=== PATIENT | female | born 1970 | race Two or more races ===

== ENCOUNTER 2018-09-06 13:43 | Inpatient (IN) | payer OTHER ==
[2018-09-06 14:20] VITALS: BMI 23.0
--- NOTE | 2018-09-06 15:34 | HP ---
CIWA Score Nausea/Vomitin-No Nausea/No Vomiting Muscle Tremors: 4-Moderate,w/Arms Extend Anxiety: 4-Mod. Anxious/Guarded Agitation: 4-Moderately Restless Paroxysmal Sweats: 3 Orientation: 0-Oriented Tacttile Disturbances: 0-None Auditory Disturbances: 0-None Visual Disturbances: 0-None Headache: 1-Very Mild CIWA-Ar Total Score: 16 - Admission Criteria OASAS Guidelines: Admission for Medically Managed Detox: Requires at least one of the followin. CIWA greater than 12 2. Seizures within the past 24 hours 3. Delirium tremens within the past 24 hours 4. Hallucinations within the past 24 hours 5. Acute intervention needed for co occurring medical disorder 6. Acute intervention needed for co occurring psychiatric disorder 7. Severe withdrawal that cannot be handled at a lower level of care (continued vomiting, continued diarrhea, abnormal vital signs) requiring intravenous medication and/or fluids 8. Admission ROS [facility] Chief Complaint: I am tired of using. I was sober for a year and recently relapsed. I need help. Allergies/Adverse Reactions: Allergies Allergy/AdvReac Type Severity Reaction Status Date / Time No Known Allergies Allergy Unverified 09/06/18 14:22 History of Present Illness: pt is a 48yr old female with a history of alcohol, xanax and heroin dependence seeking detox for treatment. Pt is on a MMTP program last received today with 70mg. pending verification. Exam Limitations: No Limitations - Ebola screening Have you traveled outside of the country in the last 21 days: No Have you had contact with anyone from an Ebola affected area: No Have you been sick,other than usual withdrawal symptoms: No Do you have a fever: No - Review of Systems Constitutional: Chills, Diaphoresis, Loss of Appetite, Night Sweats, Changes in sleep, Unintentional Wgt. Loss EENT: reports: No Symptoms Reported Respiratory: reports: No Symptoms reported Cardiac: reports: Lightheadedness GI: reports: Constipated, Nausea, Poor Fluid Intake, Abdominal cramping : reports: No Symptoms Reported Musculoskeletal: reports: Back Pain, Joint Pain Integumentary: reports: Bruising (right side bruising d/t breast biopsy on .), Flushing, Sweating Neuro: reports: Headache, Tingling, Tremors Endocrine: reports: Excessive Sweating, Flushing, Intolerance to Cold, Intolerance to Heat Hematology: reports: No Symptoms Reported Psychiatric: reports: Judgement Intact, Mood/Affect Appropiate, Orientated x3, Agitated, Anxious Other Systems: Reviewed and Negative Patient History - Patient Medical History Hx Anemia: No Hx Asthma: Yes Hx Chronic Obstructive Pulmonary Disease (COPD): Yes Hx Cancer: No Hx Cardiac Disorders: No Hx Congestive Heart Failure: No Hx Hypertension: No Hx Hypercholesterolemia: No Hx Pacemaker: No HX Cerebrovascular Accident: No Hx Seizures: No Hx Dementia: No Hx Diabetes: No Hx Gastrointestinal Disorders: No Hx Genitourinary Disorders: No Hx Sexually Transmitted Disorders: Yes (HIV) Hx Renal Disease (ESRD): No Hx Thyroid Disease: No Hx Human Immunodeficiency Virus (HIV): Yes (since 1988) Hx Hepatitis C: Yes (no treatment. ) Hx Depression: Yes Hx Suicide Attempt: No Hx Bipolar Disorder: No Hx Schizophrenia: Yes - Patient Surgical History Past Surgical History: No Hx Neurologic Surgery: No Hx Cataract Extraction: No Hx Cardiac Surgery: No Hx Lung Surgery: No Hx Breast Surgery: No Hx Breast Biopsy: No Hx Abdominal Surgery: No Hx Appendectomy: No Hx Cholecystectomy: No Hx Genitourinary Surgery: No Hx Section: No Hx Orthopedic Surgery: No Other Surgical History: left inguinal hernia repair more than 3 years Anesthesia Reaction: No - PPD History Previous Implant?: Yes Documented Results: Negative w/o proof Implanted On Prior R Admission?: No PPD to be Administered?: Yes - Reproductive History Patient is a Female of Child Bearing Age (11 -55 yrs old): No Last Menstrual Period: 10/07/12 - Smoking Cessation Smoking history: Current every day smoker Have you smoked in the past 12 months: Yes Aproximately how many cigarettes per day: 3 Hx Chewing Tobacco Use: No Initiated information on smoking cessation: Yes 'Breaking Loose' booklet given: 09/06/18 - Substance & Tx. History Hx Alcohol Use: Yes Hx Substance Use: Yes Substance Use Type: Alcohol, Cocaine, Heroin Hx Substance Use Treatment: Yes (last detox [facility] 2017) - Substances Abused Heroin Route: Injection Frequency: Daily Amount used: 10 bags Age of first use: 18 Date of Last Use: 09/05/18 Cocaine Route: Injection Frequency: Daily Amount used: 10 bags Age of first use: 18 Date of Last Use: 09/05/18 Alcohol Route: Oral Frequency: Daily Amount used: 2-3 liter liqour Age of first use: 14 Date of Last Use: 09/05/18 Alprazolam (Xanax) Route: Oral Frequency: Daily Amount used: 6-7 pills of 2mg Age of first use: 14 Date of Last Use: 09/06/18 Family Disease History - Family Disease History Family Disease History: Diabetes: Father, Mother, Sister, [place]: Grandparent Admission Physical Exam [facility] - Vital Signs Vital Signs: Vital Signs - 24 hr 09/06/18 14:17 Temperature 96.5 F L Pulse Rate 55 L Respiratory 18 Rate Blood Pressure 136/72 - Physical General Appearance: Yes: Appropriately Dressed, Moderate Distress, Tremorous, Irritable, Sweating, Anxious HEENTM: Yes: Hearing grossly Normal, Normal Voice, Nasal Congestion, Rhinorrhea Respiratory: Yes: Normal Breath Sounds, No Respiratory Distress, Rhonchi Neck: Yes: No masses,lesions,Nodules Breast: Yes: Within Normal Limits Cardiology: Yes: Regular Rhythm, Regular Rate, S1, S2 Abdominal: Yes: Normal Bowel Sounds, Non Tender, Soft Genitourinary: Yes: Within Normal Limits Back: Yes: Normal Inspection Musculoskeletal: Yes: Back pain, Muscle Pain Extremities: Yes: Normal Inspection Neurological: Yes: Fully Oriented, Alert, Normal Response Integumentary: Yes: Track Hu Lymphatic: Yes: Within Normal Limits - Addiitonal Findings: pt has a breast biopsy on 08/31/18 and has ecchymosis to left sided of breast and underarm. pt denies of any pain/discomfort at this time. - Diagnostic (1) Alcohol dependence Current Visit: Yes Status: Chronic (2) Asthma Current Visit: Yes Status: Chronic (3) Cocaine dependence Current Visit: Yes Status: Chronic (4) Hepatitis C carrier Current Visit: Yes Status: Chronic (5) Human immunodeficiency virus infection Current Visit: Yes Status: Chronic (6) Methadone maintenance therapy patient Current Visit: Yes Status: Acute (7) Benzodiazepine dependence Current Visit: Yes Status: Chronic Cleared for Admission [facility] - Detox or Rehab [facility] Level of Care: Medically Managed Detox Regimen/Protocol: Not Applicable [facility] Breath Alcohol Content Breath Alcohol Content: 0 Urine Pregancy Test - Result Urine Test Results: Negative - NO line present Urine Drug Screen - Results Drug Screen Negative: No Urine Drug Screen Results: THC-Marijuana, MARIAMA-Cocaine, OPI-Opiates, BZO- Benzodiazepines, MTD-Methadone, FEN-Fentanyl Inpatient Rehab Admission - Rehab Decision to Admit Inpatient rehab admission?: No
[2018-09-06] MEDS ORDERED: ONDANSETRON *ODT* 4 MG TABLET SL PRN (15:49)
[2018-09-06] MEDS ORDERED: IBUPROFEN 400 MG TABLET (FP) PO PRN (15:49)
[2018-09-06] MEDS ORDERED: ACETAMINOPHEN 325 MG TABLET (FP) PO PRN ×2 (15:49)
[2018-09-06] MEDS ORDERED: MAG HYDROX/AL HYDROX/SIMETH 30 ML UNIT-DOSE CUP PO PRN (15:49)
[2018-09-06] MEDS ORDERED: METHOCARBAMOL 500 MG TABLET PO PRN (15:49)
[2018-09-06] MEDS ORDERED: P-EPHED 60MG/TRIPROLIDI 2.5MG TABLET PO PRN (15:49)
[2018-09-06] MEDS ORDERED: MAGNESIUM HYDROX 2400MG/30ML ORAL SUSPENSION 30 ML CUP PO PRN (15:49)
[2018-09-06] MEDS ORDERED: MENTHOL/PHENOL 1 EACH UD MM PRN (15:49)
[2018-09-06] MEDS ORDERED: MELATONIN 5 MG TABLETS PO PRN (15:49)
[2018-09-06] MEDS ORDERED: DICYCLOMINE HCL 10 MG CAPSULE PO PRN (15:49)
[2018-09-06] MEDS ORDERED: MAGNESIUM CITRATE 300 ML BOTTLE PO PRN (15:49)
[2018-09-06] MEDS ORDERED: hydrOXYzine PAMOATE 25 MG CAPSULE (FP) PO PRN (15:49)
[2018-09-06] MEDS ORDERED: LORazepam 1 MG TABLET PO PRN (15:49)
[2018-09-06] MEDS ORDERED: ALBUTEROL SO4 8 GM HFA INHALER IH PRN (15:53)
[2018-09-06] MEDS: LORazepam 2 MG TABLET PO SCH ×2 (17:52→22:37)
[2018-09-06] MEDS ORDERED: PATIENT'S OWN MEDICATION (NON-FORMULARY) (Salmeterol/Fluticasone [Advair 500mcg/50mcg -] 1 PO SCH (22:00)
[2018-09-06] MEDS: THIAMINE HCL 100 MG TABLET (FP) PO SCH (22:36)
[2018-09-06] MEDS: BICTEGRAV/EMTRICIT/TENOFOV (BIKTARVY) 50-200-25 MG TABLET PO SCH (22:37)
[2018-09-07] MEDS: LORazepam 2 MG TABLET PO SCH ×2 (07:41→10:28)
[2018-09-07] MEDS ORDERED: METHADONE HCL 10 MG TABLET PO ONE (09:10)
[2018-09-07] MEDS ORDERED: METHADONE 40 MG, METHADONE 30 MG PO ONE (09:30)
--- NOTE | 2018-09-07 09:33 | CONSULT ---
[facility] Psychiatric Consult - Data Date of interview: 09/07/18 Admission source: Friend Identifying data: Ms Phillip is a 48 years old female, unemployedreceiving public assistance, domiciled seeking detox tretment for alcohol, opioid, cocaine and benzodiazepine Substance Abuse History: Reports history of alcohol, heroin, cocaine and xanax use. Refer to addiction counselor's summary for further information Medical History: Significant for Bronchial asthma, HIV since 1988, hepatitis C and left inguinal hernia repair. Patient is on methadone 70 mg/day. Smokes 3 cigarettea daily Psychiatric History: Denies history of previous treatment. However she is prescribed Ambien 5 mg po HS by her primary care physician for insomnia Physical/Sexual Abuse/Trauma History: Denies history of emotional, physical or sexual abuse as well as DV relationship Additional Comment: Denies criminal history Mental Status Exam - Mental Status Exam Alert and Oriented to: Time, Place, Person Cognitive Function: Fair Patient Appearance: Well Groomed Mood: Depressed Affect: Appropriate Patient Behavior: Cooperative Speech Pattern: Clear Voice Loudness: Normal Thought Process: Intact, Goal Oriented Thought Disorder: Not Present Hallucinations: Denies Suicidal Ideation: Denies Homicidal Ideation: Denies Insight/Judgement: Poor Sleep: Poorly Appetite: Good Muscle strength/Tone: Normal Gait/Station: Normal Psychiatric Findings - Problem List ([place] 1, 2,3) (1) Substance induced mood disorder Current Visit: Yes Status: Acute (2) Substance-induced sleep disorder Current Visit: Yes Status: Acute (3) Alcohol dependence with uncomplicated withdrawal Current Visit: Yes Status: Acute (4) Cocaine dependence Current Visit: Yes Status: Chronic (5) Sedative hypnotic or anxiolytic dependence Current Visit: Yes Status: Acute (6) Opioid dependence on agonist therapy Current Visit: Yes Status: Chronic (7) Nicotine dependence Current Visit: Yes Status: Chronic (8) Asthma Current Visit: Yes Status: Chronic (9) Hepatitis C carrier Current Visit: Yes Status: Chronic (10) Human immunodeficiency virus infection Current Visit: Yes Status: Chronic - Initial Treatment Plan Initial Treatment Plan: 1) Start Belsomra 10 mg po HS prn for insomnia. 2) Continue inpatient detoxification
[2018-09-07] MEDS ORDERED: METHADONE HCL 40 MG DISPERSABLE TABLET ONE (09:52)
[2018-09-07] MEDS ORDERED: METHADONE HCL 10 MG TABLET ONE (09:53)
[2018-09-07] MEDS: PRENATAL VITAMINS W/ FOLIC ACID TABLET (FP) PO SCH (10:28)
[2018-09-07] MEDS: BUDESONIDE/FORMETEROL FUMARATE 160/4.5 mcg INHALER IH SCH (10:29)
[2018-09-07] MEDS: VARENICLINE TARTRATE 0.5 MG TAB PO SCH (10:29)
--- NOTE | 2018-09-07 11:31 | EKG ---
Test Reason : Blood Pressure : / mmHG Vent. Rate : 064 BPM Atrial Rate : 064 BPM P-R Int : 110 ms QRS Dur : 078 ms QT Int : 480 ms P-R-T Axes : 074 079 071 degrees QTc Int : 495 ms SINUS RHYTHM WITH SHORT DC PROLONGED QT MARKED ST ABNORMALITY, POSSIBLE ANTERIOR SUBENDOCARDIAL INJURY ABNORMAL ECG NO PREVIOUS ECGS AVAILABLE Confirmed by AVI GOVEA, ZEE ([id number]) on 09/07/2018 11:30:57 AM Referred By: Confirmed By:ZEE CÁRDENAS MD
--- NOTE | 2018-09-07 11:31 | EKG ---
Test Reason : Blood Pressure : / mmHG Vent. Rate : 078 BPM Atrial Rate : 078 BPM P-R Int : 114 ms QRS Dur : 078 ms QT Int : 414 ms P-R-T Axes : 074 078 068 degrees QTc Int : 471 ms NORMAL SINUS RHYTHM MARKED ST ABNORMALITY, POSSIBLE ANTERIOR SUBENDOCARDIAL INJURY PROLONGED QT ABNORMAL ECG WHEN COMPARED WITH ECG OF 06-SEP-2018 17:21, NO SIGNIFICANT CHANGE WAS FOUND Confirmed by ZEE CÁRDENAS MD ([id number]) on 09/07/2018 11:31:24 AM Referred By: Confirmed By:ZEE CÁRDENSA MD
--- NOTE | 2018-09-07 12:15 | PN ---
[facility] CIWA - CIWA Score Nausea/Vomitin-No Nausea/No Vomiting Muscle Tremors: 3 Anxiety: 3 Agitation: 3 Paroxysmal Sweats: 2 Orientation: 0-Oriented Tacttile Disturbances: 0-None Auditory Disturbances: 0-None Visual Disturbances: 0-None Headache: 0-None Present CIWA-Ar Total Score: 11 S Progress Note (SOAP) Subjective: sweats shakes interrupted sleep body aches Objective: 09/07/18 12:14 Vital Signs Temperature 97.5 F L 09/07/18 10:00 Pulse Rate 93 H 09/07/18 10:00 Respiratory Rate 16 09/07/18 10:00 Blood Pressure 110/73 09/07/18 10:00 O2 Sat by Pulse Oximetry (%) labs pending aaox3 ambulating no acute distress Assessment: 09/07/18 12:14 withdrawal sx Plan: continue detox increase fluids labs pending
[2018-09-07 12:45] LABS: HEMATOCRIT 37.3 % (32.4-45.2); HEMOGLOBIN 12.6 GM/dL (10.7-15.3); MCH 30.1 pg (25.7-33.7); MCHC 33.7 g/dl (32.0-36.0); MEAN CELL VOLUME 89.3 fl (80-96); MEAN PLT VOLUME 8.7 fl (7.5-11.1); PLATELET COUNT 255 K/MM3 (134-434); RBC 4.18 M/mm3 (3.60-5.2); RDW 13.7 % (11.6-15.6); WHITE BLOOD COUNT 5.7 K/mm3 (4.0-10.0)
[2018-09-07 13:12] LABS: ALBUMIN 3.3 g/dl (3.4-5.0); ALK PHOS 79 U/L (45-117); ANION GAP 11 MMOL/L (8-16); BILIRUBIN,TOTAL 0.3 mg/dL (0.2-1); BLOOD UREA NITROGEN 15 mg/dL (7-18); CALCIUM 8.6 mg/dL (8.5-10.1); CHLORIDE 110 mmol/L (98-107); CO2 23 mmol/L (21-32); CREATININE 0.7 mg/dL (0.55-1.3); GLUCOSE,RANDOM 121 mg/dL (74-106); SGOT/AST 45 U/L (15-37); SGPT/ALT 55 U/L (13-61); SODIUM 144 mmol/L (136-145)
[2018-09-07] MEDS: LORazepam 1 MG TABLET PO SCH ×2 (17:13→22:23)
[2018-09-07] MEDS: THIAMINE HCL 100 MG TABLET (FP) PO SCH (22:24)
[2018-09-07] MEDS: BICTEGRAV/EMTRICIT/TENOFOV (BIKTARVY) 50-200-25 MG TABLET PO SCH (22:24)
[2018-09-08] MEDS ORDERED: METHADONE HCL 40 MG DISPERSABLE TABLET ONE (05:12)
[2018-09-08] MEDS ORDERED: METHADONE HCL 10 MG TABLET ONE (05:12)
[2018-09-08] MEDS ORDERED: LORazepam 0.5 MG TABLET ONE (05:33)
[2018-09-08] MEDS ORDERED: METHADONE HCL 40 MG DISPERSABLE TABLET PO SCH (06:00)
[2018-09-08] MEDS: METHADONE 40 MG, METHADONE 30 MG PO SCH (06:20)
[2018-09-08] MEDS: LORazepam 1 MG TABLET PO SCH ×2 (06:21→10:54)
[2018-09-08] MEDS: BUDESONIDE/FORMETEROL FUMARATE 160/4.5 mcg INHALER IH SCH (10:54)
[2018-09-08] MEDS: VARENICLINE TARTRATE 0.5 MG TAB PO SCH (10:54)
[2018-09-08] MEDS: PRENATAL VITAMINS W/ FOLIC ACID TABLET (FP) PO SCH (10:54)
--- NOTE | 2018-09-08 11:51 | PN ---
[facility] CIWA - CIWA Score Nausea/Vomitin-No Nausea/No Vomiting Muscle Tremors: 3 Anxiety: 2 Agitation: 3 Paroxysmal Sweats: 2 Orientation: 0-Oriented Tacttile Disturbances: 0-None Auditory Disturbances: 0-None Visual Disturbances: 0-None Headache: 0-None Present CIWA-Ar Total Score: 10 S Progress Note (SOAP) Subjective: anxiety sweats body aches Objective: 09/08/18 11:50 Vital Signs Temperature 97.3 F L 09/08/18 09:56 Pulse Rate 68 09/08/18 09:56 Respiratory Rate 18 09/08/18 09:56 Blood Pressure 115/65 09/08/18 09:56 O2 Sat by Pulse Oximetry (%) Laboratory Tests 09/07/18 09/07/18 09/07/18 08:00 08:00 08:00 WBC 5.7 RBC 4.18 Hgb 12.6 Hct 37.3 MCV 89.3 MCH 30.1 MCHC 33.7 RDW 13.7 Plt Count 255 MPV 8.7 Sodium 144 Potassium 4.0 Chloride 110 H Carbon Dioxide 23 Anion Gap 11 BUN 15 Creatinine 0.7 Creat Clearance w eGFR 89.31 Random Glucose 121 H Calcium 8.6 Total Bilirubin 0.3 AST 45 H ALT 55 Alkaline Phosphatase 79 Total Protein 7.0 Albumin 3.3 L RPR Titer Nonreactive aaox3 ambulating no acute distress Assessment: 09/08/18 11:50 withdrawal sx Plan: continue detox increase fluids
[2018-09-08] MEDS ORDERED: LORazepam 0.5 MG TABLET PO PRN (17:00)
[2018-09-08] MEDS: LORazepam 0.5 MG TABLET PO SCH ×2 (17:41→22:23)
[2018-09-08] MEDS: BICTEGRAV/EMTRICIT/TENOFOV (BIKTARVY) 50-200-25 MG TABLET PO SCH (22:23)
[2018-09-08] MEDS: THIAMINE HCL 100 MG TABLET (FP) PO SCH (22:24)
[2018-09-09] MEDS ORDERED: METHADONE HCL 10 MG TABLET ONE (04:15)
[2018-09-09] MEDS ORDERED: METHADONE HCL 40 MG DISPERSABLE TABLET ONE (04:15)
[2018-09-09] MEDS: METHADONE 40 MG, METHADONE 30 MG PO SCH (05:56)
[2018-09-09] MEDS: LORazepam 0.5 MG TABLET PO SCH ×2 (05:56→10:21)
[2018-09-09] MEDS: PRENATAL VITAMINS W/ FOLIC ACID TABLET (FP) PO SCH (10:20)
[2018-09-09] MEDS: BUDESONIDE/FORMETEROL FUMARATE 160/4.5 mcg INHALER IH SCH (10:20)
[2018-09-09] MEDS: VARENICLINE TARTRATE 0.5 MG TAB PO SCH (10:20)
--- NOTE | 2018-09-09 13:02 | DS ---
[facility] Detox Discharge Summary Admission Date: 09/06/18 Discharge Date: 09/09/18 - History Present History: Alcohol Dependence, MMTP - Physical Exam Results Vital Signs: Vital Signs Temperature 96.8 F L 09/09/18 10:16 Pulse Rate 99 H 09/09/18 10:16 Respiratory Rate 16 09/09/18 10:16 Blood Pressure 131/75 09/09/18 10:16 O2 Sat by Pulse Oximetry (%) - Treatment Hospital Course: Detox Protocol Followed, Detoxed Safely, Responded well, Discharged Condition Good, Rehab Referral Accepted - Medication Discharge Medications: Ambulatory Orders Albuterol Sulfate [Proair Hfa] 2 inh PO Q4H PRN 10/11/12 Methadone [Dolophine] 70 mg PO DAILY 10/11/12 Salmeterol/Fluticasone [Advair 500Mcg/50Mcg] 1 inh PO BID 10/11/12 Biktarvy 50-200-25 mg Tablet 1 tab PO HS 09/06/18 Dronabinol [Marinol -] 10 mg PO HS 09/06/18 Pregabalin [Lyrica] 25 mg PO HS 09/06/18 SYMBICORT 160/4.5mcg - 1 puff IN DAILY 09/06/18 Varenicline Tartrate [Chantix] 0.5 mg PO DAILY 09/06/18 Zolpidem Tartrate [Ambien] 5 mg PO HS PRN 09/06/18 - Diagnosis (1) Alcohol dependence Current Visit: Yes Status: Chronic (2) Asthma Current Visit: Yes Status: Chronic (3) Cocaine dependence Current Visit: Yes Status: Chronic (4) Hepatitis C carrier Current Visit: Yes Status: Chronic (5) Human immunodeficiency virus infection Current Visit: Yes Status: Chronic (6) Methadone maintenance therapy patient Current Visit: Yes Status: Chronic (7) Benzodiazepine dependence Current Visit: Yes Status: Chronic - AMA Did Patient Leave Against Medical Advice: No (referred to inpatient rehab)
[2018-09-09 14:27] VITALS: BP 127/77; PULSE 87; TEMP 98.1
== END 2018-09-09 15:20 | disposition other institution (70) | DRG 773 ==
LOC: YASAS 13:43 → Y6N 15:48
PROVIDERS: ADMIT Surgery; ATTEND Surgery
PROC: HZ2ZZZZ Detoxification Services for Substance Abuse Treatment (ICD-10-PCS; principal; 2018-09-06)
DX: F10.230 Alcohol dependence with withdrawal, uncomplicated (principal); F13.230 Sedative, hypnotic or anxiolytic dependence with withdrawal, uncomplicated; F14.20 Cocaine dependence, uncomplicated; F11.20 Opioid dependence, uncomplicated; F32.9 Major depressive disorder, single episode, unspecified; J44.9 Chronic obstructive pulmonary disease, unspecified; J45.909 Unspecified asthma, uncomplicated; B18.2 Chronic viral hepatitis C; Z21 Asymptomatic human immunodeficiency virus [HIV] infection status
CPT/HCPCS: 36415; 80053; 85027; 86593; 93005; 93010

== ENCOUNTER 2018-09-09 15:38 | Inpatient (IN) | payer OTHER ==
[2018-09-09] MEDS ORDERED: MENTHOL/PHENOL 1 EACH UD MM PRN (16:09)
[2018-09-09] MEDS ORDERED: MAGNESIUM CITRATE 300 ML BOTTLE PO PRN (16:09)
[2018-09-09] MEDS ORDERED: P-EPHED 60MG/TRIPROLIDI 2.5MG TABLET PO PRN (16:09)
[2018-09-09] MEDS ORDERED: LOPERAMIDE HCL 2 MG CAPSULE PO PRN (16:09)
[2018-09-09] MEDS ORDERED: MAGNESIUM HYDROX 2400MG/30ML ORAL SUSPENSION 30 ML CUP PO PRN (16:09)
[2018-09-09] MEDS ORDERED: IBUPROFEN 400 MG TABLET (FP) PO PRN (16:09)
[2018-09-09] MEDS ORDERED: ACETAMINOPHEN 325 MG TABLET (FP) PO PRN (16:09)
[2018-09-09] MEDS ORDERED: guaiFENesin 200 MG/10 ML 10 ML UNIT-DOSE CUPS PO PRN (16:09)
[2018-09-09] MEDS ORDERED: hydrOXYzine PAMOATE 25 MG CAPSULE (FP) PO PRN (16:09)
[2018-09-09] MEDS ORDERED: MAG HYDROX/AL HYDROX/SIMETH 30 ML UNIT-DOSE CUP PO PRN (16:09)
--- NOTE | 2018-09-09 16:17 | HP ---
URVASHI GOVEA Rehab Assess/Revision - Admission History Admitted to Rehab from[facility] - Findings Detox History & Physical reviewed: Yes Concur with findings: Yes Inpatient Rehab Admission - Rehab Decision to Admit Inpatient rehab admission?: Yes - Initial Determination Are CD services needed?: Yes Free of communicable disease: Yes Not in need of hospitalization: Yes - Rehab Admission Criteria Previous failed treatment: Yes Poor recovery environment: Yes Comorbidities: Yes Lacks judgement: No Patient is meeting Inpatient Rehab admission criteria:: Yes
[2018-09-09] MEDS: BICTEGRAV/EMTRICIT/TENOFOV (BIKTARVY) 50-200-25 MG TABLET PO SCH (21:14)
[2018-09-09] MEDS: THIAMINE HCL 100 MG TABLET (FP) PO SCH (21:15)
[2018-09-09] MEDS: MELATONIN 5 MG TABLETS PO PRN (21:15)
[2018-09-09] MEDS ORDERED: PATIENT'S OWN MEDICATION (NON-FORMULARY) (Salmeterol/Fluticasone [Advair 500mcg/50mcg -] 1 PO SCH (22:00)
[2018-09-10] MEDS ORDERED: METHADONE HCL 10 MG TABLET ONE (04:23)
[2018-09-10] MEDS ORDERED: METHADONE HCL 40 MG DISPERSABLE TABLET ONE (04:23)
[2018-09-10] MEDS ORDERED: METHADONE HCL 40 MG DISPERSABLE TABLET PO SCH (06:00)
[2018-09-10] MEDS: METHADONE 40 MG, METHADONE 30 MG PO SCH (06:06)
[2018-09-10] MEDS: PRENATAL VITAMINS W/ FOLIC ACID TABLET (FP) PO SCH (09:48)
[2018-09-10] MEDS: BUDESONIDE/FORMETEROL FUMARATE 160/4.5 mcg INHALER IH SCH (09:48)
[2018-09-10] MEDS: VARENICLINE TARTRATE 0.5 MG TAB PO SCH (09:48)
[2018-09-10] MEDS: THIAMINE HCL 100 MG TABLET (FP) PO SCH (21:33)
[2018-09-10] MEDS: BICTEGRAV/EMTRICIT/TENOFOV (BIKTARVY) 50-200-25 MG TABLET PO SCH (21:33)
[2018-09-10] MEDS: MELATONIN 5 MG TABLETS PO PRN (21:33)
[2018-09-11] MEDS ORDERED: METHADONE HCL 10 MG TABLET ONE (04:27)
[2018-09-11] MEDS ORDERED: METHADONE HCL 40 MG DISPERSABLE TABLET ONE (04:28)
[2018-09-11] MEDS: METHADONE 40 MG, METHADONE 30 MG PO SCH (06:08)
[2018-09-11] MEDS: BUDESONIDE/FORMETEROL FUMARATE 160/4.5 mcg INHALER IH SCH (10:01)
[2018-09-11] MEDS: PRENATAL VITAMINS W/ FOLIC ACID TABLET (FP) PO SCH (10:01)
[2018-09-11] MEDS: VARENICLINE TARTRATE 0.5 MG TAB PO SCH (10:02)
[2018-09-11] MEDS: THIAMINE HCL 100 MG TABLET (FP) PO SCH (21:21)
[2018-09-11] MEDS: MELATONIN 5 MG TABLETS PO PRN (21:21)
[2018-09-11] MEDS: BICTEGRAV/EMTRICIT/TENOFOV (BIKTARVY) 50-200-25 MG TABLET PO SCH (21:21)
[2018-09-12] MEDS ORDERED: METHADONE HCL 10 MG TABLET ONE (03:19)
[2018-09-12] MEDS ORDERED: METHADONE HCL 40 MG DISPERSABLE TABLET ONE (03:19)
[2018-09-12] MEDS: METHADONE 40 MG, METHADONE 30 MG PO SCH (06:28)
[2018-09-12] MEDS: PRENATAL VITAMINS W/ FOLIC ACID TABLET (FP) PO SCH (10:30)
[2018-09-12] MEDS: VARENICLINE TARTRATE 0.5 MG TAB PO SCH (10:30)
[2018-09-12] MEDS: BUDESONIDE/FORMETEROL FUMARATE 160/4.5 mcg INHALER IH SCH (10:31)
[2018-09-12] MEDS: AMMONIUM LACTATE 12% LOTION 225 GM BOTTLE TP SCH ×2 (10:50→21:45)
[2018-09-12] MEDS: THIAMINE HCL 100 MG TABLET (FP) PO SCH (21:44)
[2018-09-12] MEDS: MELATONIN 5 MG TABLETS PO PRN (21:45)
[2018-09-12] MEDS: BICTEGRAV/EMTRICIT/TENOFOV (BIKTARVY) 50-200-25 MG TABLET PO SCH (21:45)
[2018-09-13] MEDS ORDERED: METHADONE HCL 40 MG DISPERSABLE TABLET ONE (08:46)
[2018-09-13] MEDS ORDERED: METHADONE HCL 10 MG TABLET ONE (08:46)
[2018-09-13] MEDS ORDERED: PT OWN MED DRAWER 7, Y5N ONE ×2 (08:48→19:25)
[2018-09-13] MEDS: VARENICLINE TARTRATE 0.5 MG TAB PO SCH (09:49)
[2018-09-13] MEDS: BUDESONIDE/FORMETEROL FUMARATE 160/4.5 mcg INHALER IH SCH (09:49)
[2018-09-13] MEDS: METHADONE 40 MG, METHADONE 30 MG PO SCH (09:49)
[2018-09-13] MEDS: PRENATAL VITAMINS W/ FOLIC ACID TABLET (FP) PO SCH (09:49)
[2018-09-13] MEDS: AMMONIUM LACTATE 12% LOTION 225 GM BOTTLE TP SCH ×2 (09:50→22:00)
[2018-09-13] MEDS: THIAMINE HCL 100 MG TABLET (FP) PO SCH (22:00)
[2018-09-13] MEDS: MELATONIN 5 MG TABLETS PO PRN (22:00)
[2018-09-13] MEDS: BICTEGRAV/EMTRICIT/TENOFOV (BIKTARVY) 50-200-25 MG TABLET PO SCH (22:00)
[2018-09-14] MEDS ORDERED: METHADONE HCL 40 MG DISPERSABLE TABLET ONE (08:57)
[2018-09-14] MEDS ORDERED: METHADONE HCL 10 MG TABLET ONE (08:57)
[2018-09-14] MEDS: METHADONE 40 MG, METHADONE 30 MG PO SCH (10:13)
[2018-09-14] MEDS: AMMONIUM LACTATE 12% LOTION 225 GM BOTTLE TP SCH ×2 (10:13→21:52)
[2018-09-14] MEDS: PRENATAL VITAMINS W/ FOLIC ACID TABLET (FP) PO SCH (10:13)
[2018-09-14] MEDS: VARENICLINE TARTRATE 0.5 MG TAB PO SCH (10:13)
[2018-09-14] MEDS: BUDESONIDE/FORMETEROL FUMARATE 160/4.5 mcg INHALER IH SCH (10:13)
[2018-09-14] MEDS ORDERED: PT OWN MED DRAWER 7, Y5N ONE (19:30)
[2018-09-14] MEDS: MELATONIN 5 MG TABLETS PO PRN (21:52)
[2018-09-14] MEDS: THIAMINE HCL 100 MG TABLET (FP) PO SCH (21:52)
[2018-09-14] MEDS: BICTEGRAV/EMTRICIT/TENOFOV (BIKTARVY) 50-200-25 MG TABLET PO SCH (21:53)
[2018-09-15 07:08] VITALS: BP 143/69; PULSE 54; TEMP 97.8
[2018-09-15] MEDS ORDERED: METHADONE HCL 40 MG DISPERSABLE TABLET ONE (08:55)
[2018-09-15] MEDS ORDERED: METHADONE HCL 10 MG TABLET ONE (08:55)
[2018-09-15] MEDS ORDERED: PT OWN MED DRAWER 7, Y5N ONE (08:56)
--- NOTE | 2018-09-15 10:10 | PN ---
[facility] Progress Note (SOAP) Subjective: Client wishes to leave today for personal reasons that she does not want to discuss. Objective: 09/15/18 10:09 Vital Signs (72 hours) 09/13/18 09/13/18 09/13/18 00:30 03:30 06:42 Temperature 98 F Pulse Rate 62 Respiratory 20 18 18 Rate Blood Pressure 114/71 09/14/18 09/14/18 09/14/18 00:30 03:30 07:04 Temperature 97.9 F Pulse Rate 63 Respiratory 20 18 18 Rate Blood Pressure 112/72 09/15/18 09/15/18 09/15/18 00:30 03:30 07:07 Temperature 97.8 F Pulse Rate 54 L Respiratory 18 17 18 Rate Blood Pressure 143/69 Medically stable, but appears anxious. A+O x3, neurologically intact, lungs clear, heart rate regular, s1s2 audible. No recent labs. 09/15/18 10:13 Assessment: 09/15/18 10:11 Medically stable for discharge. Diagnoses: HIV Cocaine Dependance, chronic ETOH dependance, chronic Asthma Nicotine dependance Plan: Will receive aftercare at [facility] in the [place], Primary care at [facility]. Prescriptions sent to pharmacy.
[2018-09-15] MEDS: METHADONE 40 MG, METHADONE 30 MG PO SCH (10:13)
[2018-09-15] MEDS: PRENATAL VITAMINS W/ FOLIC ACID TABLET (FP) PO SCH (10:13)
[2018-09-15] MEDS: AMMONIUM LACTATE 12% LOTION 225 GM BOTTLE TP SCH (10:14)
[2018-09-15] MEDS: VARENICLINE TARTRATE 0.5 MG TAB PO SCH (10:14)
[2018-09-15] MEDS: BUDESONIDE/FORMETEROL FUMARATE 160/4.5 mcg INHALER IH SCH (10:16)
== END 2018-09-15 10:30 | disposition left against medical advice (07) | DRG 770 ==
LOC: YASAS 15:38 → Y3W 15:39
PROVIDERS: ADMIT Neuromusculoskeletal Medicine & OMM; ATTEND Neuromusculoskeletal Medicine & OMM
PROC: HZ42ZZZ Group Counseling for Substance Abuse Treatment, Cognitive-Behavioral (ICD-10-PCS; principal; 2018-09-09)
DX: F10.20 Alcohol dependence, uncomplicated (principal); F11.20 Opioid dependence, uncomplicated; F13.20 Sedative, hypnotic or anxiolytic dependence, uncomplicated; F14.20 Cocaine dependence, uncomplicated; F17.210 Nicotine dependence, cigarettes, uncomplicated; J45.909 Unspecified asthma, uncomplicated; Z21 Asymptomatic human immunodeficiency virus [HIV] infection status; B18.2 Chronic viral hepatitis C